=== PATIENT | female | born 1965 | race Caucasian/White ===

== ENCOUNTER → 2023-08-04 23:40 | Outpatient (CLI) | payer MEDICARE, MEDICAID, SELFPAY ==
[2023-08-04 18:12] LABS: Coronavirus 19, PCR Not Detected (NotDetected); Influenza A, PCR Not Detected (NotDetected); Influenza B, PCR Not Detected (NotDetected)
== END ==
LOC: LAB.DROPOF 23:41
PROVIDERS: PCP Nurse Practitioner; Visit Provider Nurse Practitioner
DX: J06.9 Acute upper respiratory infection, unspecified (principal); R06.09 Other forms of dyspnea; J02.9 Acute pharyngitis, unspecified; R09.81 Nasal congestion; R05.9 Cough, unspecified; R51.9 Headache, unspecified
CPT/HCPCS: 87636

== ENCOUNTER 2023-09-01 22:27 | Outpatient (CLI) | payer MEDICARE, MEDICAID, SELFPAY | END 2023-09-01 23:59 | LOC: LAB.DROPOF 22:27 | PROVIDERS: PCP Family Medicine; Visit Provider Family Medicine | DX: R30.0 Dysuria (principal) | CPT/HCPCS: 87086 ==

== ENCOUNTER → 2023-10-06 12:59 | Outpatient (POV) | payer MEDICARE, MEDICAID, SELFPAY ==
--- NOTE | 2023-10-06 13:11 | A.OFFVIS_ITS ---
HPI Data of Consult Patient: new to practice Consult date: 10/06/23 Requesting Physician: Leah Colin APRN Consult Narrative Reason for consult: Mid back pain History of present illness: Ms. Montelongo is a 58 year old female who presents today as a new patient. She is a referral from the [facility] location. Today she rates her pain a 8 out of 10. Patient states her pain is all in her mid back and denies any radiating symptoms into her legs. Patient states this has been going on for years and progressively worsened. Patient denies any specific trauma or injury that initially led to her symptoms. Patient does describe her pain as a constant achy sensation that is worse with increased activity or lifting movements. Patient states that she has had injections in the past however she did not get significant relief from that she does have a overall fear of needles and would prefer not to do guidance. Patient does state that she has tried Tylenol and ibuprofen along with heat and ice and topicals with minimal relief. Patient does state that the pain interferes with her ability to perform activities of daily living such as cooking and cleaning. Patient has been prescribed Lortab and Percocet in the past and states that she did have some leftover and has been breaking these in half in order to wean herself down and not have withdrawal symptoms. Patient does also state that she has had prior pain management for her neck as well. Patient states that she did just have physical therapy less than a year ago and it did help some however scoliosis seems to aggravate some of her overall symptoms.She is currently prescribed alprazolam 1 mg 3 times a day and [place] 10 mg 3 times a day from outside providers. Her Dawit has been reviewed. CC: Leah Colin APRN [facility] Disclaimer: The information contained in this section may have been updated after the patient was seen, as this information can be updated by other users. Medical History (Updated 10/06/23 @ 13:38 by Leah Colin APRN) Anxiety Back pain CMC arthritis GERD (gastroesophageal reflux disease) Kidney stones Scoliosis Surgical History (Updated 10/06/23 @ 13:25 by Amalia Abreu RN) Hx of carpal tunnel repair Hx of colectomy Hx of gastric bypass Hx of oral surgery Hx of tubal ligation Family History Grandfather Cancer Coronary artery disease Heart attack Grandmother Coronary artery disease Diabetes Heart attack Father Diabetes Cirrhosis Mother ALS (amyotrophic lateral sclerosis) Social History (Updated 10/06/23 @ 13:25 by Amalia Abreu RN) Smoking Status: Former smoker tobacco type: cigarettes smoking status stop date: 2005 alcohol intake: current current occupational status: other Travel in the last 8 weeks: None Review of Systems Review of Systems Review of systems:: pertinent systems reviewed and negative unless documented below Review of systems (narrative): Review of Systems: General: No recent weight changes, no fever, no sleep disturbances Respiratory: No cough, no shortness of air, no recurring pulmonary infections Cardiovascular/peripheral vascular: No chest pain, no palpitations, no edema, no shortness of breath Gastrointestinal: No new onset incontinence, normal bowel movements reported Genitourinary: No new onset incontinence Musculoskeletal: Mid back pain Psychiatric: [Normal mood/affect] Neurological: [Denies weakness in extremities], [denies balance issues] Meds Home Medications and Allergies Home Medications Medication Instructions Recorded Confirmed Type alprazolam 0.5 mg tablet 0.5 mg PO TID PRN anxiety #90 tabs 07/04/23 10/06/23 Rx hydrocodone 10 mg-acetaminophen 1 tab PO TIDP PRN Pain 07/04/23 10/06/23 History 325 mg tablet cyclobenzaprine 10 mg tablet 10 mg PO TIDP PRN muscle spasms 10/06/23 10/06/23 History naloxone 4 mg/actuation nasal spray 4 mg intranasal DAILYP PRN overdose 10/06/23 10/06/23 History omeprazole 20 mg capsule,delayed 20 mg PO DAILY 10/06/23 10/06/23 History release oxycodone-acetaminophen 5 mg-325 1 tab PO Q4H PRN Pain 10/06/23 10/06/23 History mg tablet New Prescriptions to Start Prescriptions: Allergies Allergy/AdvReac Type Severity Reaction Status Date / Time No Known Allergies Allergy Verified 09/01/23 09:19 Objective Narrative: Physical Exam: General: Alert and oriented x3, no acute distress, pleasant and cooperative Lungs: Respirations even and unlabored, symmetrical chest expansion Eyes: PERRL Musculoskeletal: Flexion and extension of thoracic [spine] somewhat guarded secondary to pain, [antalgic gait noted] Neurological: Speech clear, no gross sensory deficit Additional findings Additional findings: X-ray imaging lumbar spine 07/26/2023 findings: Mild levoscoliosis with accentuation of the normal lordosis. There is mild to moderate diffuse osteoarthritis. Advanced degenerative disc disease at the facets at L4-L5 and L5-S1. Grade 1 anterolisthesis of L4, increased over prior study. No spondylosis. Moderate generalized fecal loading. Cholecystectomy clips noted. MRI thoracic spine 2021 findings: Moderate facet arthropathy and T2 and T3. Moderate right and mild left facet arthropathy and T8 and T9. Bilateral facet arthropathy. T9-10: Minor disc bulge. T10-11 minor disc bulge. T11-12. Small intervertebral disc herniation involving the superior endplate of T12 without moderate endplate reactive changes. Assessment and Plan *Assessment and plan (1) Mid back pain: Status: Acute Category: Medical Code(s): M54.9 - Dorsalgia, unspecified (2) Degenerative disc disease, thoracic: Status: Acute Category: Medical Code(s): M51.34 - Other intervertebral disc degeneration, thoracic region (3) Facet arthropathy, thoracic: Status: Acute Category: Medical Code(s): M47.814 - Spondylosis without myelopathy or radiculopathy, thoracic region (4) Chronic back pain: Status: Acute Qualifiers: Back pain location: thoracic back pain Back pain laterality: bilateral Qualified Code(s): M54.6 - Pain in thoracic spine; G89.29 - Other chronic pain Category: Medical Code(s): M54.9 - Dorsalgia, unspecified; G89.29 - Other chronic pain Plan Patient is experiencing significant pain in her mid back with limited range of motion. I have discussed with the patient that we are more interventional pain and that we do more hands-on approach such as injection therapy or intrathecal pain pump or stimulator trial. I have discussed with the patient that she may benefit from thoracic medial branch block however patient does have a fear of needles and would like to avoid this option. I have also discussed with the patient that she may benefit from intrathecal pain pump trial in the future however due to this being with a needle as well she is not interested in this option at this time. I will order the patient a compounded cream. I will also send in a prescription of meloxicam 7.5 mg daily with a 2-week supply of this medication. Patient denied any heart or kidney issues. I have counseled the patient to take this medication with food to minimize GI upset and discontinue all other NSAIDs while taking this medication. Patient will return to clinic in 2 weeks for reevaluation of symptoms and plan of care. Patient has been instructed to contact the clinic with any concerns before the next appointment. Dr. Lozano has reviewed this note and agrees with this plan of care. This note was dictated using voice recognition software and make contain errors or omissions.
[2023-10-06 13:23] VITALS: BP 99/77; PULSE 94; RESP 20; O2SAT 98; BMI 30.7
== END | disposition home or self-care (01) ==
PROVIDERS: Visit Provider Nurse Practitioner Family
DX: M51.34 Other intervertebral disc degeneration, thoracic region; M47.814 Spondylosis without myelopathy or radiculopathy, thoracic region; G89.29 Other chronic pain
CPT/HCPCS: 99202; G0463

== ENCOUNTER 2023-10-31 19:58 | Outpatient (CLI) | payer MEDICARE, MEDICAID, SELFPAY | END 2023-10-31 23:59 | LOC: LAB.DROPOF 19:58 | PROVIDERS: PCP Family Medicine; Visit Provider Family Medicine | DX: N39.0 Urinary tract infection, site not specified (principal) | CPT/HCPCS: 87086 ==

== ENCOUNTER 2023-12-28 10:54 | Outpatient (CLI) | payer MEDICARE, MEDICAID, SELFPAY | END 2023-12-28 23:59 | disposition home or self-care (01) | LOC: LAB.DROPOF 12-29 10:54 | PROVIDERS: PCP Family Medicine; Visit Provider Family Medicine | DX: R30.0 Dysuria (principal) | CPT/HCPCS: 87086 ==

== ENCOUNTER 2024-04-05 09:49 | Outpatient (CLI) | payer MEDICARE, SELFPAY ==
[2024-04-05 19:08] LABS: Basophils # 0.1 K/mm3 (0-0.2); Basophils % 1.1 % (0.1-2.0); Eosinophils # 0.2 K/mm3 (0.0-0.4); Hematocrit 36.4 % (37.0-47.0); Hemoglobin 11.2 g/dL (12.2-16.2); Lymphocytes # 2.3 K/mm3 (0.7-4.5); Lymphocytes % 47.5 % (10-50); Mean Corpuscular HGB Conc 30.8 g/dL (31.8-35.4); Mean Corpuscular Hemoglobin 28.9 pg (27.0-31.2); Mean Corpuscular Volume 93.6 fl (81-99); Mean Platelet Volume 9.2 fl (7.4-10.4); Monocytes # 0.3 K/mm3 (0.1-1.0); Monocytes % 6.4 % (1.7-9.3); Platelet Count 386 K/mm3 (142-424); Red Blood Count 3.89 M/mm3 (4.20-5.40); White Blood Count 4.8 K/mm3 (4.8-10.8)
[2024-04-05 19:32] LABS: Alanine Aminotransferase 16 U/L (12-78); Albumin Level 3.6 g/dl (3.5-5.0); Albumin/Globulin Ratio 1.2 (1.1-1.8); Alkaline Phosphatase 70 U/L (38-126); Anion Gap 6.5 mEq/L (5-15); Aspartate Amino Transferase 35 U/L (14-36); Bilirubin,Total 0.5 mg/dl (0.2-1.3); Blood Urea Nitrogen 12 mg/dl (7-17); Carbon Dioxide 27 mmol/L (22.0-30.0); Chloride 107 mmol/L (98-107); Estimated Glomerular Filt Rate 87 ml/min (>60); GFR (African American) 105 ML/MIN (>60); Globulin 2.9 g/dL (1.3-3.2); Glucose 91 mg/dl (74-100); Potassium 4.5 mmoL/L (3.5-5.1); Sodium 136 mmol/L (136-145); Total Protein,Serum 6.5 g/dl (6.3-8.2)
[2024-04-05 19:47] LABS: 25-OH Vitamin D, Total 29.4 ng/mL (30-100)
[2024-04-05 20:02] LABS: Thyroid Stimulating Hormone 4.49 uIU/mL (0.465-4.68)
[2024-04-05 20:46] LABS: Hemoglobin A1C 5.6 % (4.0-6.0)
[2024-04-05 21:01] LABS: Vitamin B12 199 pg/mL (239-931)
== END 2024-04-05 23:59 | disposition home or self-care (01) ==
LOC: LAB.DROPOF 04-06 10:15
PROVIDERS: PCP Family Medicine; Visit Provider Family Medicine
DX: E66.9 Obesity, unspecified (principal); M51.34 Other intervertebral disc degeneration, thoracic region; E11.9 Type 2 diabetes mellitus without complications; E55.9 Vitamin D deficiency, unspecified; Z68.33 Body mass index [BMI] 33.0-33.9, adult
CPT/HCPCS: 80050; 80053; 82306; 82607; 83036; 84443; 85025

== ENCOUNTER 2024-05-17 09:40 | Outpatient (CLI) | payer MEDICARE, SELFPAY | END 2024-05-17 23:59 | disposition home or self-care (01) | LOC: LAB.DROPOF 05-18 09:40 | PROVIDERS: PCP Nurse Practitioner; Visit Provider Nurse Practitioner | DX: N10 Acute pyelonephritis (principal); M54.9 Dorsalgia, unspecified | CPT/HCPCS: 87086; 87088; 87186 ==

== ENCOUNTER 2024-06-04 10:15 | Outpatient (CLI) | payer MEDICARE, SELFPAY ==
[2024-06-04 17:54] LABS: Basophils % 0.8 % (0.1-2.0); Eosinophils # 0.1 K/mm3 (0.0-0.4); Eosinophils % 2.3 % (0.1-12.0); Hematocrit 35.7 % (37.0-47.0); Lymphocytes # 1.9 K/mm3 (0.7-4.5); Lymphocytes % 36.6 % (10-50); Mean Corpuscular HGB Conc 33.5 g/dL (31.8-35.4); Mean Corpuscular Hemoglobin 29.5 pg (27.0-31.2); Mean Corpuscular Volume 88.1 fl (81-99); Monocytes # 0.3 K/mm3 (0.1-1.0); Monocytes % 6.2 % (1.7-9.3); Neutrophils # 2.8 K/mm3 (1.8-7.8); Platelet Count 388 K/mm3 (142-424); Red Blood Count 4.06 M/mm3 (4.20-5.40); Red Cell Distribution Width 13.6 % (11.5-17.5); White Blood Count 5.1 K/mm3 (4.8-10.8)
[2024-06-04 18:46] LABS: Albumin Level 4.1 g/dl (3.5-5.0); Aspartate Amino Transferase 29 U/L (14-36); Bilirubin,Total 0.6 mg/dl (0.2-1.3); Carbon Dioxide 30 mmol/L (22.0-30.0); Estimated Glomerular Filt Rate 74 ml/min (>60); GFR (African American) 90 ML/MIN (>60); Glucose 96 mg/dl (74-100); Sodium 139 mmol/L (136-145); VLDL Cholesterol 12 mg/dL (0-40)
[2024-06-04 19:26] LABS: Alanine Aminotransferase 15 U/L (12-78); Albumin/Globulin Ratio 1.6 (1.1-1.8); Alkaline Phosphatase 75 U/L (38-126); Anion Gap 12.9 mEq/L (5-15); Blood Urea Nitrogen 18 mg/dl (7-17); Calcium 9.2 mg/dl (8.4-10.2); Chloride 101 mmol/L (98-107); Chol/HDL Ratio 3.7 (1-3.5); Cholesterol 256 mg/dl (140-200); Globulin 2.6 g/dL (1.3-3.2); HDL Cholesterol 70 mg/dl (40-60); Potassium 4.9 mmoL/L (3.5-5.1); Total Protein,Serum 6.7 g/dl (6.3-8.2); Triglycerides 60 mg/dl (30-150)
[2024-06-04 19:29] LABS: Troponin I < 0.01 ng/ml (0.00-0.034)
[2024-06-04 19:38] LABS: Direct LDL Cholesterol 166.33 mg/dL (100-129)
[2024-06-04 19:59] LABS: Thyroid Stimulating Hormone 2.21 uIU/mL (0.465-4.68)
[2024-06-04 20:24] LABS: Hemoglobin A1C 5.6 % (4.0-6.0)
== END 2024-06-04 23:59 | disposition home or self-care (01) ==
LOC: LAB.DROPOF 06-05 13:04
PROVIDERS: PCP Nurse Practitioner; Visit Provider Nurse Practitioner
DX: F41.9 Anxiety disorder, unspecified (principal); E66.9 Obesity, unspecified; M54.9 Dorsalgia, unspecified; R73.01 Impaired fasting glucose; R07.9 Chest pain, unspecified; R06.02 Shortness of breath; E78.5 Hyperlipidemia, unspecified; Z68.34 Body mass index [BMI] 34.0-34.9, adult
CPT/HCPCS: 80053; 80061; 83036; 84443; 84484; 85025; 87086

== ENCOUNTER 2024-07-09 10:03 | Outpatient (CLI) | payer MEDICARE, SELFPAY | END 2024-07-09 23:59 | disposition home or self-care (01) | LOC: LAB.DROPOF 07-10 15:09 | PROVIDERS: PCP Family Medicine; Visit Provider Family Medicine | DX: N39.0 Urinary tract infection, site not specified (principal) | CPT/HCPCS: 87086 ==

== ENCOUNTER 2024-10-16 14:25 | Outpatient (CLI) | payer OTHER, SELFPAY | END 2024-10-16 23:59 | disposition home or self-care (01) | LOC: LAB.DROPOF 10-18 10:10 | PROVIDERS: PCP Nurse Practitioner; Visit Provider Nurse Practitioner | DX: R30.0 Dysuria (principal) | CPT/HCPCS: 87086 ==

== ENCOUNTER 2024-11-13 10:57 | Outpatient (CLI) | payer MEDICARE, SELFPAY ==
[2024-11-13 18:17] LABS: Creatinine,Urine Random 66 mg/dL (Not Estab.)
[2024-11-13 18:19] LABS: Microalbumin < 6.000 mg/L (0-16.7)
[2024-11-13 18:50] LABS: Basophils # 0.1 K/mm3 (0-0.2); Basophils % 0.8 % (0.1-2.0); Eosinophils # 0.2 K/mm3 (0.0-0.4); Eosinophils % 3.2 % (0.1-12.0); Hematocrit 35.3 % (37.0-47.0); Hemoglobin 11.3 g/dL (12.2-16.2); Lymphocytes # 2.8 K/mm3 (0.7-4.5); Lymphocytes % 47.3 % (10-50); Mean Corpuscular Hemoglobin 29.5 pg (27.0-31.2); Mean Corpuscular Volume 92.2 fl (81-99); Mean Platelet Volume 9.4 fl (7.4-10.4); Monocytes # 0.5 K/mm3 (0.1-1.0); Monocytes % 7.8 % (1.7-9.3); Neutrophils # 2.5 K/mm3 (1.8-7.8); Neutrophils % 40.9 % (37.0-80.0); Platelet Count 395 K/mm3 (142-424); Red Blood Count 3.83 M/mm3 (4.20-5.40); Red Cell Distribution Width 13.7 % (11.5-17.5)
[2024-11-13 19:25] LABS: Hemoglobin A1C 5.1 % (4.0-6.0)
[2024-11-13 19:34] LABS: Alanine Aminotransferase 19 U/L (12-78); Albumin Level 3.4 g/dl (3.5-5.0); Albumin/Globulin Ratio 1.3 (1.1-1.8); Alkaline Phosphatase 75 U/L (38-126); Anion Gap 12.7 mEq/L (5-15); Aspartate Amino Transferase 29 U/L (14-36); Bilirubin,Total 0.5 mg/dl (0.2-1.3); Blood Urea Nitrogen 19 mg/dl (7-17); Calcium 8.8 mg/dl (8.4-10.2); Carbon Dioxide 27 mmol/L (22.0-30.0); Chloride 103 mmol/L (98-107); Estimated Glomerular Filt Rate 86 ml/min (>60); GFR (African American) 104 ML/MIN (>60); Globulin 2.7 g/dL (1.3-3.2); Glucose 89 mg/dl (74-100); Potassium 4.7 mmoL/L (3.5-5.1); Sodium 138 mmol/L (136-145); Total Protein,Serum 6.1 g/dl (6.3-8.2)
[2024-11-13 20:03] LABS: Thyroid Stimulating Hormone 1.71 uIU/mL (0.465-4.68)
[2024-11-13 20:22] LABS: Vitamin B12 198 pg/mL (239-931)
== END 2024-11-13 23:59 | disposition home or self-care (01) ==
LOC: LAB.DROPOF 11-14 09:49
PROVIDERS: PCP Nurse Practitioner; Visit Provider Nurse Practitioner
DX: E11.9 Type 2 diabetes mellitus without complications (principal); E78.5 Hyperlipidemia, unspecified; E66.9 Obesity, unspecified
CPT/HCPCS: 80053; 82043; 82570; 82607; 83036; 84443; 85025

== ENCOUNTER 2025-01-14 10:18 | Outpatient (CLI) | payer MEDICARE, SELFPAY ==
[2025-01-14 19:20] LABS: Chol/HDL Ratio 3.3 (1-3.5); Cholesterol 130 mg/dl (140-200); HDL Cholesterol 39 mg/dl (40-60); Triglycerides 61 mg/dl (30-150); VLDL Cholesterol 12 mg/dL (0-40)
[2025-01-14 20:14] LABS: Direct LDL Cholesterol 66.54 mg/dL (100-129)
--- OUTSIDE RECORDS SUMMARY | 2025-01-15 15:21 | XMS_ITS | Continuity of Care Document ---
Author Organization [place] - [facility] & [place], [facility] Address [address] [place] [address] Care Team Providers Care Steel Buffer Name Role Phone VAL WEBSTER Primary Care Provider Assessment Encounter Date Assessment Date Assessment LastModified by Organization Details LastModified Time 12/24/2024 12/24/2024 Patient presente d for medication refill. Patient tolerating medication well at current dose without adverse effects. Refilled as below. Discussed plan with patient, who expressed understanding. Follow up as noted below. Narcan is prescribed due to either long-term use of opioid medication, MME > 50mg, use of benzodiazepines with opioids and medical comorbidities. Instructions were given to patient on use. [email or web address] Not available 12/21/2024 11:47:56 Plan of Treatment Reminders Order Date Submit Date Provider Last Modified By Organization Details Last Modified Time Details Appointments Establish ed Visit 15 min 2024 08:15A M MIGEL DALE NP Not available Not available Not available Lab None recorded. Referral None recorded. Procedures None recorded. Surgeries None recorded. Imaging None recorded. Medication Orders hydrocodo ne 10 mg-acetam inophen 325 mg tablet 2024 025 [facility] [address] [place], [address], 12/24/2024 13:42:48 cyclobenz aprine 10 mg tablet 2024 025 [facility] [address] [place], [address], 12/24/2024 13:42:46 meloxicam 15 mg tablet 2024 025 [facility] [address] [place], [address], 12/24/2024 13:42:44 omeprazol e 40 mg capsule,d elayed release 2024 025 [facility] [address] [place], [address], 12/24/2024 13:42:45 Patient TargetsNo targets recorded. Patient InstructionsNo instructions recorded. Reason for Referral None Reported. Medical Equipment None Reported. Allergies No known drug allergies Medications Name Sig Start Date Stop Date Status Note LastModified by Organization Details LastModified Time cyclobenzap rine 10 mg tablet Take 1 tablet 3 times a day by oral route. 2024 active Not Available Not Available Not Avai lable atorvastati n 20 mg tablet 10/22 completed Not Available Not Available Not Available azithromyci n 250 mg tablet TAKE 2 TABLETS BY MOUTH ON DAY 1, AND THEN TAKE 1 TABLET BY MOUTH ONCE A DAY ON DAY 2 THROUGH DAY 5 active Not Available Not Available No t Available fluconazole 150 mg tablet TAKE 1 TABLET BY MOUTH ONCE A WEEK active Not Available Not Available No t Available meloxicam 15 mg tablet Take 1 tablet every day by oral route. 2024 active Not Available Not Available Not Avai lable ciprofloxac in 500 mg tablet TAKE 1 TABLET BY MOUTH TWICE DAILY. 10/22 completed Not Available Not Available Not Available sulfamethox azole 800 mg-trimetho prim 160 mg tablet TAKE 1 TABLET BY MOUTH TWICE DAILY active Not Available Not Available No t Available hydrocodone 10 mg-acetamin ophen 325 mg tablet Take 1 tablet 3 times a day by oral route. 2024 active Not Available Not Available Not Avai lable omeprazole 40 mg capsule,del ayed release Take 1 capsule every day by oral route. 2024 active Not Available Not Available Not Avai lable cefuroxime axetil 500 mg tablet TAKE 1 TABLET BY MOUTH TWICE DAILY active Not Available Not Available No t Available methylpredn isolone 4 mg tablets in a dose pack TAKE BY MOUTH DIRECTED ON INSIDE OF PACKAGE active Not Available Not Available No t Available bromphenira mine-pseudo ephedrine-D M 2 mg-30 mg-10 mg/5 mL oral syrup TAKE 5 ML BY MOUTH EVERY 4 TO 6 HOURS NEEDED FOR COLD SYMPTOMS active Not Available Not Available No t Available liraglutide 0.6 mg/0.1 mL (18 mg/3 mL) subcutaneou s pen injector DIAL AND INJECTSUB CUTANEOUS LY 0.6 MG DAILY FOR 7 DAYS, THEN INJECT 1.2 MG DAILY THEREAFTE R, DO NOT EXCEED 1.8 MG PER DAY 10/22 completed Not Available Not Available Not Available Ozempic 1 mg/dose (4 mg/3 mL) subcutaneou s pen injector INJECT 1 MG UNDER THE SKIN ONCE WEEKLY. active Not Available Not Available No t Available Ozempic 0.25 mg or 0.5 mg (2 mg/3 mL) subcutaneou s pen injector INJECT 0.5MG SUBCUTANE OUSLY ONCE A WEEK active Not Available Not Available No t Available Vitals Date Recorded Body height Body temperature Oxygen saturation Oxygen saturation in Arterial blood by Pulse oximetry Heart rate Respiratory rate Systolic blood pressure Diastolic blood pressure Provider Name and Address Organization Details Last Updated DateTime 5 167.64 cm 97.2 [degF] 100 % 100 % 84 /min 16 /min 120 mm[Hg] 62 mm[Hg] Jannette [facility] [place] [facility] [place] 5 08:16:52 Social History None recorded. Functional Status None recorded. Mental Status None recorded. Family History Nothing Reported. Medical History No medical history recorded. Gynecological HistoryNo gynecological history recorded. Obstetrics History GPAL:G 0 P 0 0 0 0 Past Encounters Encounter ID Performer Location Encounter Start Date Encounter Closed Date Diagnosis/Indication Diagnosis SNOMED-CT Code Diagnosis ICD10 Code Diagnosis Note [id number] [facility] [address] [email or web address] [address] [address] 12/24/2024 07:57:44 12/24/2024 08:39:52 Lumbar spondylosis 227929703 M47.816 Lumbar radiculopathy 128 199408 M54.16 Long-term current use of insulin 943416438 Z79.4 Cervical spondylosis 387 560329 M47.812 Degenerati on of lumbar intervertebral disc 34339213 M51.360 Long-term current use of opiate analgesic drug [id number] 81125 Z79.891 Primary go narthrosis, bilateral 828157866 M17.0 Gastroesop hageal reflux disease without esophagitis 103195888 K21.9 Pt unable to get in to PCP to get GERD meds and is out at this time, she has an appt. Rx sent for one month until PCP can fill. Health Concerns Section Related Observation LastModified by Organization Detai ls LastModified Time None Recorded Concern Status LastModified by Organization Details LastModified Time None Recorded Payers Encounter Date Sequence Insurance Name Policy Number Policy Tena Covered Member ID Tena Member ID Guarantor Name 12/24/2024 2 [place] Thania I Reginald [id number] Thania Reginald 12/24/2024 1 [employer] (MEDICARE REPLACEMENT/ ADVANTAGE - PPO) [id number] Thania I Reginald [id number] Thania Reginald Notes Date Note Type Note Provider Name and Address Organization Details Recorded Time 12/24/2024 text/html 59 yo female in for a f/u for low back pain. Pain is rated at 4/10, and has gotten up to 8/10 in the last month. She describes pain as frequent and aching. Standing, walking adn lying down makes pain worse, heat and medication makes it better. Does not cause loss of bowel or bladder. Pain level at rest: 3/10Pain level w/activity: 7/10Feeling down depressed or hopeless: NoAre you having little interest or pleasure in doing things: SometimesHave you had any falls with injury in the past year: NoDo you use any illicit or recreation drugs: NoDo you or have you ever smoked tobacco: Yes - formerWhat is your level of alcohol consumption: None MIGEL DALE NP [address] [facility] , [place], [address], [facility] - [place] & [place] 12/24/2024 13:42:48 OBGyn Episode No OBEpisode recorded.
--- OUTSIDE RECORDS SUMMARY | 2025-01-15 15:21 | XMS_ITS | Data Portability ---
Author Organization [facility] Address [address] [place] [address] Assessment No assessment recorded. Plan of Treatment Reminders Order Date Submit Date Provider Last Modified By Organization Details Last Modified Time Details Appointments None recorded. Lab drug screen, 14 drugs (detectime d), urine 2022 023 DOUGLAS [facility], [address], [place], [place], [address], 3 17:08:50 HbA1c (hemoglobi n A1c), blood 2022 023 DOUGLAS [facility], [address], [place], [place], [address], 3 08:28:07 TSH + free T4, serum 2022 023 DOUGLAS [facility], [address], [place], [place], [address], 3 08:28:02 lipid panel, serum 2022 023 DOUGLAS [facility], [address], [place], [place], [address], 3 08:28:05 CMP, serum or plasma 2022 023 DOUGLAS [facility], [address], [place], [place], [address], 3 08:28:04 CBC w/ auto diff 2022 023 DOUGLAS [facility], [address], [place], [place], [address], 3 08:28:03 urinalysis , dipstick 2022 023 jayna [facility], [address] [place] [address] , [place], [address], 3 12:45:11 culture, urine 2022 023 DOUGLAS [facility], [address], [place], [place], [address], 3 04:10:21 vitamin D, 25-hydroxy , total, serum 2022 023 DOUGLAS [facility], [address], [place], [place], [address], 3 08:28:08 vitamin B12 + folate, serum or blood 2022 023 DOUGLAS [facility], [address], [place], [place], [address], 3 08:28:06 iron + total iron-saul ng capacity (TIBC), serum 2022 023 DOUGLAS [facility], [address], [place], [place], [address], 3 08:28:06 Referral pain management referral - 57yo with chronic back pain and scoliosis. She was started on alprazolam , hydrocodon e, and cyclobenza chelsie 2 years ago. Titraiting meds down. Please evaluate and treat. Thank you. 2022 023 HOOPER Not available 4 12:22:47 Procedures None recorded. Surgeries None recorded. Imaging None recorded. Medication Orders cephalexin 500 mg capsule 2022 023 [facility] [id number], [address] [place] [address] Dr, [place], [address], 3 10:05:55 omeprazole 20 mg capsule,de layed release 2022 023 [facility] [id number], [address] [facility] , [place], [address], 3 10:05:58 Diflucan 150 mg tablet 2022 023 [facility] [id number], [address] , [place], [address], 3 10:05:55 Patient TargetsNo targets recorded. Patient Instructions Encounter Date Encounter Id Patient Instructions Last Modified By Organization Details Last Modified Time 07/11/2023 [id number] learning about healthy weight sbrashear Not available 07/11/2023 10:07:38 body mass index: care instructions sbrashear Not available 07/11/2023 10:07:38 medical record request* - Cologuard results Not available 08/03/2023 11:32:12 Reason for Referral Pain Management Referral for Chronic low back pain 57yo with chronic back pain and scoliosis. She was started on alprazolam, hydrocodone, and cyclobenzaprine 2 years ago. Titraiting meds down. Please evaluate and treat. Thank you. Referring Physician: April Olea, Family Medicine, Encounter Date: 07/11/2023 Results Created Date Observation Date Name Description Value Unit Range Abnormal Flag Note LastModifiedBy Organization Detail LastModifiedTime 07/11/2007/12/2023 TSH+F REE T4 TSH 3.450 uIU/m L 0.450- 4.500 Not Available [facility] ([facility]) [address] [facility], [place], [address], 07/12/2023 08:28:02 07/11/20 23 07/12/2023 TSH+F REE T4 T4,free(dire ct) 0.83 NG/dL 0.82-1 .77 Not Available [facility] ([facility]) [address] [facility], [place], [address], 07/12/2023 08:28:02 07/11/20 23 07/12/2023 CBC WITH DIFFE RENTI AL/PL ATELE T WBC 4.6 x10e3 /uL 3.4-10 .8 Not Available [facility] ([facility]) [address] [facility], [place], [address], 07/12/2023 08:28:03 07/11/20 23 07/12/2023 CBC WITH DIFFE RENTI AL/PL ATELE T RBC 4.29 x10e6 /uL 3.77-5 .28 Not Available [facility] ([facility]) [address] [facility], [place], [address], 07/12/2023 08:28:03 07/11/20 23 07/12/2023 CBC WITH DIFFE RENTI AL/PL ATELE T hemoglobin 12.3 g/dL 11.1-1 5.9 Not Available [facility] ([facility]) [address] [facility], [place], [address], 07/12/2023 08:28:03 07/11/20 23 07/12/2023 CBC WITH DIFFE RENTI AL/PL ATELE T hematocrit 37.4 % 34.0-4 6.6 Not Available [facility] ([facility]) [address] [facility], [place], [address], 07/12/2023 08:28:03 07/11/20 23 07/12/2023 CBC WITH DIFFE RENTI AL/PL ATELE T MCV 87 fL 79-97 Not Available [facility] ([facility]) [address] [facility], [place], [address], 07/12/2023 08:28:03 07/11/20 23 07/12/2023 CBC WITH DIFFE RENTI AL/PL ATELE T MCH 28.7 pg 26.6-3 3.0 Not Available [facility] ([facility]) [address] [facility], [place], [address], 07/12/2023 08:28:03 07/11/20 23 07/12/2023 CBC WITH DIFFE RENTI AL/PL ATELE T MCHC 32.9 g/dL 31.5-3 5.7 Not Available [facility] ([facility]) [address] [facility], [place], [address], 07/12/2023 08:28:03 07/11/20 23 07/12/2023 CBC WITH DIFFE RENTI AL/PL ATELE T RDW 12.8 % 11.7-1 5.4 Not Available [facility] ([facility]) [address] [facility], [place], [address], 07/12/2023 08:28:03 07/11/20 23 07/12/2023 CBC WITH DIFFE RENTI AL/PL ATELE T platelets 309 x10e3 /uL 150-45 0 Not Available [facility] ([facility]) [address] [facility], [place], [address], 07/12/2023 08:28:03 07/11/20 23 07/12/2023 CBC WITH DIFFE RENTI AL/PL ATELE T neutrophils 35 % not estab. Not Available [facility] ([facility]) [address] [facility], [place], [address], 07/12/2023 08:28:03 07/11/20 23 07/12/2023 CBC WITH DIFFE RENTI AL/PL ATELE T lymphs 53 % not estab. Not Available [facility] ([facility]) [address] [facility], [place], [address], 07/12/2023 08:28:03 07/11/20 23 07/12/2023 CBC WITH DIFFE RENTI AL/PL ATELE T monocytes 9 % not estab. Not Available [facility] ([facility]) [address] [facility], [place], [address], 07/12/2023 08:28:03 07/11/20 23 07/12/2023 CBC WITH DIFFE RENTI AL/PL ATELE T eos 2 % not estab. Not Available [facility] ([facility]) [address] [place], [address], 07/12/2023 08:28:03 07/11/20 23 07/12/2023 CBC WITH DIFFE RENTI AL/PL ATELE T basos 1 % not estab. Not Available [facility] ([facility]) [address] [place], [address], 07/12/2023 08:28:03 07/11/20 23 07/12/2023 CBC WITH DIFFE RENTI AL/PL ATELE T immature cells COMPUTATIONAL CHEMIST Not Available [facility] ([facility]) [address] [place], [address], 07/12/2023 08:28:03 07/11/2007/12/2023 CBC WITH DIFFE RENTI AL/PL ATELE T neutrophils (absolute) 1.6 x10e3 /uL 1.4-7. 0 Not Available [facility] ([facility]) [address] [place], [address], 07/12/2023 08:28:03 07/11/20 23 07/12/2023 CBC WITH DIFFE RENTI AL/PL ATELE T lymphs (absolute) 2.5 x10e3 /uL 0.7-3. 1 Not Available [facility] ([facility]) [address] [place], [address], 07/12/2023 08:28:03 07/11/2007/12/2023 CBC WITH DIFFE RENTI AL/PL ATELE T monocytes(ab solute) 0.4 x10e3 /uL 0.1-0. 9 Not Available [facility] ([facility]) [address] [place], [address], 07/12/2023 08:28:03 07/11/20 23 07/12/2023 CBC WITH DIFFE RENTI AL/PL ATELE T eos (absolute) 0.1 x10e3 /uL 0.0-0. 4 Not Available [facility] ([facility]) [address] [facility], [place], [address], 07/12/2023 08:28:03 07/11/20 23 07/12/2023 CBC WITH DIFFE RENTI AL/PL ATELE T baso (absolute) 0.0 x10e3 /uL 0.0-0. 2 Not Available [facility] ([facility]) [address] [facility], [place], [address], 07/12/2023 08:28:03 07/11/20 23 07/12/2023 CBC WITH DIFFE RENTI AL/PL ATELE T immature granulocytes 0 % not estab. Not Available [facility] ([facility]) [address] [facility], [place], [address], 07/12/2023 08:28:03 07/11/20 23 07/12/2023 CBC WITH DIFFE RENTI AL/PL ATELE T immature grans (abs) 0.0 x10e3 /uL 0.0-0. 1 Not Available [facility] ([facility]) [address] [facility], [place], [address], 07/12/2023 08:28:03 07/11/20 23 07/12/2023 CBC WITH DIFFE RENTI AL/PL ATELE T NRBC COMPUTATIONAL CHEMIST Not Available [facility] ([facility]) [address] [facility], [place], [address], 07/12/2023 08:28:03 07/11/20 23 07/12/2023 CBC WITH DIFFE RENTI AL/PL ATELE T hematology comments: COMPUTATIONAL CHEMIST Not Available [facility] ([facility]) [address] [facility], [place], [address], 07/12/2023 08:28:03 07/11/20 23 07/12/2023 COMP. METAB OLIC PANEL (14) glucose 89 mg/dL 70-99 Not Available [facility] ([facility]) [address] [place], [address], 07/12/2023 08:28:04 07/11/20 23 07/12/2023 COMP. METAB OLIC PANEL (14) BUN 13 mg/dL 6-24 Not Available [facility] ([facility]) [address] [place], [address], 07/12/2023 08:28:04 07/11/20 23 07/12/2023 COMP. METAB OLIC PANEL (14) creatinine 0.79 mg/dL 0.57-1 .00 Not Available [facility] ([facility]) [address] [place], [address], 07/12/2023 08:28:04 07/11/20 23 07/12/2023 COMP. METAB OLIC PANEL (14) eGFR 88 mL/mi n/1.7 3 >59 Not Available [facility] ([facility]) [address] [place], [address], 07/12/2023 08:28:04 07/11/20 23 07/12/2023 COMP. METAB OLIC PANEL (14) BUN/creatini ne ratio 16 9-23 Not Available [facility] ([facility]) [address] [place], [address], 07/12/2023 08:28:04 07/11/20 23 07/12/2023 COMP. METAB OLIC PANEL (14) sodium 140 mmol/ L 134-14 4 Not Available [facility] ([facility]) [address] [place], [address], 07/12/2023 08:28:04 07/11/20 23 07/12/2023 COMP. METAB OLIC PANEL (14) potassium 4.7 mmol/ L 3.5-5. 2 Not Available [facility] ([facility]) [address] [place], [address], 07/12/2023 08:28:04 07/11/20 23 07/12/2023 COMP. METAB OLIC PANEL (14) chloride 101 mmol/ L 96-106 Not Available [facility] ([facility]) [address] [place], [address], 07/12/2023 08:28:04 07/11/20 23 07/12/2023 COMP. METAB OLIC PANEL (14) carbon dioxide, total 25 mmol/ L 20-29 Not Available [facility] ([facility]) [address] [place], [address], 07/12/2023 08:28:04 07/11/20 23 07/12/2023 COMP. METAB OLIC PANEL (14) calcium 9.3 mg/dL 8.7-10 .2 Not Available [facility] ([facility]) [address] [place], [address], 07/12/2023 08:28:04 07/11/20 23 07/12/2023 COMP. METAB OLIC PANEL (14) protein, total 6.6 g/dL 6.0-8. 5 Not Available [facility] ([facility]) [address] [place], [address], 07/12/2023 08:28:04 07/11/20 23 07/12/2023 COMP. METAB OLIC PANEL (14) albumin 4.1 g/dL 3.8-4. 9 Not Available [facility] ([facility] [address] [facility] [place], [address], 07/12/2023 08:28:04 07/11/20 23 07/12/2023 COMP. METAB OLIC PANEL (14) globulin, total 2.5 g/dL 1.5-4. 5 Not Available [facility] ([facility]) [address] [facility] [place], [address], 07/12/2023 08:28:04 07/11/20 23 07/12/2023 COMP. METAB OLIC PANEL (14) A/G ratio 1.6 1.2-2. 2 Not Available [facility] ([facility]) [address] [facility] [place], [address], 07/12/2023 08:28:04 07/11/20 23 07/12/2023 COMP. METAB OLIC PANEL (14) bilirubin, total 0.2 mg/dL 0.0-1. 2 Not Available [facility] ([facility]) [address] [facility] [place], [address], 07/12/2023 08:28:04 07/11/20 23 07/12/2023 COMP. METAB OLIC PANEL (14) alkaline phosphatase 82 IU/L 44-121 Not Available [facility] ([facility]) [address] [facility] [place], [address], 07/12/2023 08:28:04 07/11/20 23 07/12/2023 COMP. METAB OLIC PANEL (14) AST (SGOT) 24 IU/L 0-40 Not Available [facility] ([facility]) [address] [facility] [place], [address], 07/12/2023 08:28:04 07/11/20 23 07/12/2023 COMP. METAB OLIC PANEL (14) ALT (SGPT) 12 IU/L 0-32 Not Available [facility] ([facility]) [address] [facility] [place], [address], 07/12/2023 08:28:04 07/11/20 23 07/12/2023 LIPID PANEL cholesterol, total 206 mg/dL 100-19 9 above high normal Not Available [facility] ([facility]) [address] [facility] [place], [address], 07/12/2023 08:28:05 07/11/20 23 07/12/2023 LIPID PANEL triglyceride s 99 mg/dL 0-149 Not Available [facility] ([facility]) [address] [facility] [place], [address], 07/12/2023 08:28:05 07/11/20 23 07/12/2023 LIPID PANEL HDL cholesterol 57 mg/dL >39 Not Available [facility] ([facility]) [address] [facility] [place], [address], 07/12/2023 08:28:05 07/11/20 23 07/12/2023 LIPID PANEL VLDL cholesterol petra 18 mg/dL 5-40 Not Available [facility] ([facility]) [address] [facility] [place], [address], 07/12/2023 08:28:05 07/11/20 23 07/12/2023 LIPID PANEL LDL chol calc ([facility]) 131 mg/dL 0-99 above high normal Not Available [facility] ([facility]) [address] [facility] [place], [address], 07/12/2023 08:28:05 07/11/20 23 07/12/2023 LIPID PANEL comment: COMPUTATIONAL CHEMIST Not Available [facility] ([facility]) [address] [facility] [place], [address], 07/12/2023 08:28:05 07/11/20 23 07/12/2023 IRON AND TIBC iron bind.cap.(TI BC) 398 ug/dL 250-45 0 Not Available [facility] ([facility]) [address] [facility] [place], [address], 07/12/2023 08:28:06 07/11/20 23 07/12/2023 IRON AND TIBC UIBC 280 ug/dL 131-42 5 Not Available [facility] ([facility]) [address] [facility] [place], [address], 07/12/2023 08:28:06 07/11/20 23 07/12/2023 IRON AND TIBC iron 118 ug/dL 27-159 Not Available [facility] ([facility]) [address] [place], [address], 07/12/2023 08:28:06 07/11/20 23 07/12/2023 IRON AND TIBC iron saturation 30 % 15-55 Not Available [facility] ([facility]) [address] [facility], [place], [address], 07/12/2023 08:28:06 07/11/2007/12/2023 VITAM IN B12 AND FOLAT E vitamin B12 233 pg/mL 232-12 45 Not Available [facility] ([facility]) [address] [facility], [place], [address], 07/12/2023 08:28:06 07/11/2007/12/2023 VITAM IN B12 AND FOLAT E folate (folic acid), serum 7.9 NG/mL >3.0 A serum folat e edison ntrat ion of less than 3.1 ng/mL is consi dered to repre sent clini petra defic iency . Not Available [facility] ([facility]) [address] [facility], [place], [address], 07/12/2023 08:28:06 07/11/2007/12/2023 HEMOG LOBIN A1C hemoglobin A1C 6.0 % 4.8-5. 6 above high normal Predi abete s: 5.7 - 6.4 Diabe venita: >6.4 Glyce sally contr ol for adult s with diabe venita: <7.0 Not Available [facility] ([facility]) [address] [place], [address], 07/12/2023 08:28:07 07/11/20 23 07/12/2023 VITAM IN D, 25-HY DROXY vitamin D, 25-hydroxy 36.3 NG/mL 30.0-1 00.0 Vitam in D defic iency has been defin ed by the Insti tute of Medic ine and an Endoc rine Socie ty pract ice guide line as a level of serum 25-OH vitam in D less than 20 ng/mL (1,2) . The Endoc rine Socie ty went on to fur er defin e vitam in D insuf ficie ncy as a level betwe en 21 and 29 ng/mL (2). 1. IOM (Inst itute of Medic ine). 2010. Dieta ry refer ence intak es for calci um and D. Casey jacobo [place]: [facility] Press . 2. Mark bear MF, Deb rodriguez [place], Gerard off-F amanda i RABAGO, et al. Evalu ation , treat ment, and preve ntion of vitam in D defic iency : an Endoc rine Socie ty clini petra pract ice guide line. JCEM. 2010; 96(7) :1911 -30. Not Available [facility] ([facility]) [address] [facility], [place], [address], 07/12/2023 08:28:08 07/11/20 23 07/13/2023 URINE CULTU RE, ETHELI NE urine culture, routine Final report Not Available [facility] ([facility]) [address] [place], [address], 07/13/2023 04:10:21 07/11/20 23 07/13/2023 URINE CULTU RE, ROUTI NE result 1 No growth Not Available [facility] ([facility]) [address] [facility], [place], [address], 07/13/2023 04:10:21 07/11/20 23 07/11/2023 urina lysis , dipst ick Leukocytes Trace Not Available [facility] [address] , [place], [address], 07/11/2023 09:37:15 07/11/20 23 07/11/2023 urina lysis , dipst ick Nitrite negati ve Not Available [address] , [place], [address], 07/11/2023 09:37:15 07/11/20 23 07/11/2023 urina lysis , dipst ick Urobilinogen .2 Not Available [address] , [place], [address], 07/11/2023 09:37:15 07/11/20 23 07/11/2023 urina lysis , dipst ick Protein Negati ve Not Available [address] , [place], [address], 07/11/2023 09:37:15 07/11/20 23 07/11/2023 urina lysis , dipst ick pH 5.5 Not Available [address] , [place], [address], 07/11/2023 09:37:15 07/11/20 23 07/11/2023 urina lysis , dipst ick Blood Modera te Not Available [address] , [place], [address], 07/11/2023 09:37:15 07/11/20 23 07/11/2023 urina lysis , dipst ick Specific [place] 1.030 Not Available [address] , [place], [address], 07/11/2023 09:37:15 07/11/20 23 07/11/2023 urina lysis , dipst ick Ketone Trace Not Available [address] [place], [address], 07/11/2023 09:37:15 07/11/20 23 07/11/2023 urina lysis , dipst ick Bilirubin Small Not Available [address] , [place], [address], 07/11/2023 09:37:15 07/11/20 23 07/11/2023 urina lysis , dipst ick Glucose Negati ve Not Available [address] , [place], [address], 07/11/2023 09:37:15 07/11/20 23 07/11/2023 urina lysis , dipst ick Appearance Cloudy Not Available [address] , [place], [address], 07/11/2023 09:37:15 07/11/20 23 07/11/2023 urina lysis , dipst ick Color Dark Yellow Not Available [address] , [place], [address], 07/11/2023 09:37:15 07/12/2007/20/2023 COMPL IANCE DRUG NATALI SIS, UR summary report (summary) FINAL ===== ===== ===== ===== ===== ===== ===== ===== ===== ===== ===== ===== ===== === TOXAS SURE COMP DRUG NATALI SIS,U R ===== ===== ===== ===== ===== ===== ===== ===== ===== ===== ===== ===== ===== === Test Resul t Flag Units Drug Prese nt Alpra zolam 188 ng/mg creat Alpha -hydr oxyal prazo garcia 823 ng/mg creat Sourc e of alpra zolam is a sched uled presc ripti on medic ation . Alpha -hydr oxyal prazo garcia is an expec mukesh metab olite of alpra zolam . Bayard codon e >5263 ng/mg creat Bayard morph one 651 ng/mg creat Dihyd rocod eine 1085 ng/mg creat Norhy droco done >2632 ng/mg creat Sourc es of hydro codon e inclu de sched uled presc ripti on medic ation s. Bayard morph one, dihyd rocod eine and norhy droco done are expec mukesh metab olite s of hydro codon e. Bayard morph one and dihyd rocod eine are also avail able as sched uled presc ripti on medic ation s. Fenta nyl 1 ng/mg creat Sourc es of fenta nyl inclu de sched uled presc ripti on medic ation s, inclu ding IV, patch , and trans mucos al formu latio ns. Cyclo benza chelsie PRESE NT Desme thylc yclob enzap rine PRESE NT Desme thylc yclob enzap rine is an expec mukesh metab olite of cyclo benza chelsie . Aceta minop hen PRESE NT Ibupr ofen PRESE NT Diphe nhydr amine PRESE NT ===== ===== ===== ===== ===== ===== ===== ===== ===== ===== ===== ===== ===== === Test Resul t Flag Units Ref Range Creat inine 190 mg/dL >=20 ===== ===== ===== ===== ===== ===== ===== ===== ===== ===== ===== ===== ===== === Decla red Medic ation s: Medic ation list was not provi ded. ===== ===== ===== ===== ===== ===== ===== ===== ===== ===== ===== ===== ===== === For clini petra consu ltati on, pleas e call [phone]. ===== ===== ===== ===== ===== ===== ===== ===== ===== ===== ===== ===== ===== === Not Available [facility] ([facility]) [address] [facility], [place], [address], 2023 17:08:50 07/12/20 23 2023 COMPL IANCE DRUG NATALI SIS, UR pdf . Not Available [facility] ([facility]) [address] [facility], [place], [address], 2023 17:08:50 Result Notes None recorded. Problems Name Problem SNOMED Code Status Onset Date Resolution Date Notes Provider Name and Address Organization Details Recorded Time Scoliosis deformity of spine 972377527 Active 2022 Cande sloan, [place] - [facility] 3 09:05:59 Arthritis 0976152 Active 2022 Cande sloan [place] - [facility] 3 09:06:07 Chronic low back pain 392671644 Active 2022 April Olea, DO [address], [place], [address] , [place] - [facility] 3 10:01:11 Acute urinary tract infection 521177215 Active 2022 April Olea, DO [address], [place], [address] , [place] - [facility] 3 10:01:31 Candidiasis of vagina 17309489 Active 2022 April Olea, DO [address], [place], [address] , [place] - [facility] 3 10:01:41 Gastroesophag eal reflux disease 137351619 Active 2022 April Olea DO [address], [place], [address] , [place] - [facility] 3 10:05:08 Obesity 314333066 Active 2022 April Olea DO [address], [place], [address] , [place] - [facility] 3 10:06:06 Malaise and fatigue 895121990 Active 2022 April Olea, DO [address], [place], [address] , [place] - [facility] 3 10:07:31 Problem Notes None recorded. Procedures Surgical History Date Name Laterality Status Provider Name and Address Organization Details Recorded Time [facility] 09:07:43 Carpal tunnel surgery completed [facility] - [facility] 07/11/2023 09:07:57 Tubal Ligation completed [facility] - [facility] 07/11/2023 09:08:02 cholecystectomy completed [facility] - [facility] 07/11/2023 09:08:19 Imaging Results None recorded. Procedure Notes None recorded. Medical Equipment None Reported. Allergies No known drug allergies Medications Name Sig Start Date Stop Date Status Note LastModified by Organization Details LastModified Time cyclobenz aprine 10 mg tablet Take 1 tablet every day by oral route in the evening for 90 days. active Not Available Not Available No t Available amoxicill in 500 mg capsule take 1 capsule (500 mg) by oral route every 8 hours for 10 days 02/25 completed amoxicil supriya 500 mg oral capsule; Recorded Status: Recorded on: 05/22/20 09 9:52AM;D iscontin ued Status: Disconti nued on: 02/26/20 14 1:00PM;U ser: johnd;Es t. Completi on: 06/01/20 09;Indic ation: E. Coli Genitour inary Tract Infectio n - ([phone]);Prin mukesh: 05/22/20 09 Not Available Not Available Not Available fluconazo le 150 mg tablet TAKE ONE TABLET BY MOUTH IN A SINGLE DOSE active Not Available Not Available No t Available promethaz ine 12.5 mg tablet 07/11 completed Not Available Not Available Not Available Pyridium 100 mg tablet take 2 tablets (200 mg) by oral route 3 times per day after meals for 10 days 02/25 completed Pyridium 100 mg oral tablet;R ecorded Status: Recorded on: 05/22/20 09 9:52AM;D iscontin ued Status: Disconti nued on: 02/26/20 14 1:00PM;U ser: johnd;Es t. Completi on: 06/01/20;Indic ation: Urinary Tract Irritati on - ([phone] );Prin mukesh: 05/22/20 Not Available Not Available Not Available sulfameth oxazole 800 mg-trimet hoprim 160 mg tablet 07/11 completed Not Available Not Available Not Available hydrocodo ne 10 mg-acetam inophen 325 mg tablet TAKE 1 TABLET BY MOUTH THREE TIMES DAILY FOR BACK PAIN active Not Available Not Available No t Available alprazola m 0.5 mg tablet Take 1 tablet 3 times a day by oral route for 30 days. active Not Available Not Available No t Available alprazola m 0.25 mg tablet TAKE 1 TABLET BY MOUTH THREE TIMES DAILY NEEDED FOR ANXIETY 07/11 completed Not Available Not Available Not Available cephalexi n 500 mg capsule Take 1 capsule every 12 hours by oral route for 7 days. active Not Available Not Available No t Available pantopraz ole 40 mg tablet,de layed release 07/11 completed Not Available Not Available Not Available omeprazol e 20 mg capsule,d elayed release Take 1 capsule( s) every day by oral route for 90 days. active Not Available Not Available No t Available nitrofura ntoin monohydra te/macroc rystals 100 mg capsule 07/11 completed Not Available Not Available Not Available naloxone 4 mg/actuat ion nasal spray active Not Available Not Available Not Available Vitals Date Recorded Body weight Body mass index (BMI) Body height Body temperature Respiratory rate Heart rate Oxygen saturation Oxygen saturation in Arterial blood by Pulse oximetry Systolic blood pressure Diastolic blood pressure Provider Name and Address Organization Details Last Updated DateTime 3 89080.5 7 g 31.2 kg/m2 165.1 cm 98.7 [degF] 18 /min 75 /min 95 % 95 % 110 mm[Hg] 82 mm[Hg] Cande Shin [place] - [facility] 09:10:23 Social History Question Answer Notes LastModified by Organizat ion Details LastModified Time Tobacco Smoking Status Former Smoker Quit in 2005 Cande sloan [place] - [facility] 07/11/2023 09:06:55 Do You Have An Advance Directive? No [email or web address] Information not available 07/11/2023 Are You Blind Or Do You Have Difficulty Seeing? No [email or web address] Information not available 07/11/2023 What Is Your Level Of Caffeine Consumption? Heavy Tea Information not available 07/11/2023 In The 14 Days Before Symptom Onset, Have You Had Close Contact With A Laboratory-confir med COVID-19 While That Case Was Ill? No Information not available 07/11/2023 In The 14 Days Before Symptom Onset, Have You Had Close Contact With A Person Who Is Under Investigation For COVID-19 While That Person Was Ill? No [email or web address] Information not available 07/11/2023 Have You Been To An Area Known To Be High Risk For COVID-19? No Information not available 07/11/2023 Are You Deaf Or Do You Have Serious Difficulty Hearing? No Information not available 07/11/2023 What Type Of Diet Are You Following? REGULAR Information not available 07/11/2023 Have You Processed Blood Or Body Fluids From An Ebola Virus Disease Patient Without Appropriate PPE? No [email or web address] Information not available 07/11/2023 Do You Reside In Or Have You Traveled To An Area Where Ebola Virus Transmission Is Active? No [email or web address] Information not available 07/11/2023 What Is The Highest Grade Or Level Of School You Have Completed Or The Highest Degree You Have Received? [id number] [email or web address] Information not available 07/11/2023 Have There Been Any Changes To Your Family Or Social Situation? No [email or web address] Information no t available 07/11/2023 What Is The Fluoride Status Of Your Home? Unknown Information not available 07/11/2023 When Did You Quit Smoking? 16+yearssinc elastcigaret te [email or web address] Information not available 07/11/2023 Have You Recently Or Are You Planning To Travel To An Area With Zika Virus? No [email or web address] Information not available 07/11/2023 Do You Have A Medical Power Of Hopper Attendant? No [email or web address] Information not available 07/11/2023 What Was The Date Of Your Most Recent Tobacco Screening? 07/11/2023 Information not available 07/11/2023 How Many Children Do You Have? 4 [email or web address] Information not available 07/11/2023 What Is Your Relationship Status? [email or web address] Information not available 07/11/2023 Are You Sexually Active? No [email or web address] Information not available 07/11/2023 Do You Have Smoke And Carbon Monoxide Detectors In Your Home? Yes [email or web address] Information not available 07/11/2023 At What Age Did You Start Smoking Tobacco? 19 [email or web address] Information not available 07/11/2023 Are You Passively Exposed To Smoke? No [email or web address] Information no t available 07/11/2023 How Many Years Have You Smoked Tobacco? 11 [email or web address] Information not available 07/11/2023 Do You Have Difficulty Walking Or Climbing Stairs? No [email or web address] Information not available 07/11/2023 Sex: Female Functional Status Question Answer Note LastModified by Organizat ion Details LastModified Time Do you use any illicit or recreational drugs? No [email or web address] Information not available 07/11/2023 Do you or have you ever used any other forms of tobacco or nicotine? No [email or web address] Information not available 07/11/2023 What is your level of alcohol consumption? None [email or web address] Information not available 07/11/2023 Are you currently employed? No Disabled [email or web address] Information not available 07/11/2023 Do you have transportation difficulties? No [email or web address] Information not available 07/11/2023 Are you able to walk? YESWOREST [email or web address] Information not available 07/11/2023 Do you have difficulty doing errands alone? No [email or web address] Information not available 07/11/2023 Are you able to care for yourself? Yes [email or web address] Information n ot available 07/11/2023 Do you have difficulty dressing or bathing? No Information not available 07/11/2023 Mental Status Question Answer Note LastModified by Organization D etails LastModified Time Do you have difficulty concentrating, remembering or making decisions? No [email or web address] Information no t available 07/11/2023 Family History Relationship Description Onset Age of this Age Resolved Age Notes LastModified by Organization Details LastModified Time Mother Amyotrophic lateral sclerosis [email or web address] Not available 2022 09:08:34 Father Diabetes mellitus [email or web address] Not available 2022 09:08:41 Maternal Grandfather Heart disease [email or web address] Not available 2022 09:08:58 Maternal Grandmother Heart disease [email or web address] Not available 2022 09:08:58 Paternal Grandfather Malignant neoplasm of lung [email or web address] Not available 2022 09:09:10 Paternal Grandmother Malignant tumor of breast [email or web address] Not available 2022 09:09:19 Paternal Grandmother Heart disease Not available 2022 09:09:24 Medical History No medical history recorded. Gynecological HistoryNo gynecological history recorded. Obstetrics History GPAL:G 3 P 3 0 0 3 Type Value Full Term 3 Living 3 Total 3 Past Encounters Encounter ID Performer Location Encounter Start Date Encounter Closed Date Diagnosis/Indication Diagnosis SNOMED-CT Code Diagnosis ICD10 Code Diagnosis Note [id number] [facility] [address] [place] [address] 05/22/2009 00:00:00 [id number] [facility] [address] [place] [id number] 02/25/2014 00:00:00 [id number] [facility] [address] [place] [address] 05/17/2014 00:00:00 [id number] [facility] [address] [place] [address] 05/22/2009 00:00:00 [id number] April Olea, DO [address] [place] [address] 07/11/2023 08:42:42 07/11/2023 10:24:13 Increased frequency of urination 798232808 R35.0 Chronic low back pain 27 3849256 M54.50 I fully explained the combinatio n of hydrocodon e, alprazolam , and clobenzapr ine is not a safe combinatio n. I agreed to only prescribe one. She does not need refills today. Will send UDS. She agreed to do a referral for pain management . Acute urin yessica tract infection 274025038 N39.0 Candidiasis of vagina 72 035730 B37.31 Gastroesop hageal reflux disease 360292627 K21.9 Body mass index 30+ - obesity 764606095 Z68.31 Obesity 997287879 E66.9 Malaise and fatigue 2717 27304 R53.81 Screening for malignant neoplasm of colon 583896357 Z12.11 Screening for malignant neoplasm of breast 481398024 Z12.39 Declined today. Screening for malignant neoplasm of cervix 444191277 Z12.4 Declined today. Health Concerns Section Related Observation LastModified by Organization Detai ls LastModified Time None Recorded Concern Status LastModified by Organization Details LastModified Time None Recorded Advance Directives Directive N: Payers Insurance Date Sequence Insurance Name Policy Number Policy Tena Covered Member ID Tena Member ID Guarantor Name 07/21/2023 1 [employer] (MEDICARE REPLACEMENT/A DVANTAGE - PPO) Thania Barnese [id number] Thania Montelongo 07/21/2023 2 [place] Thania Rodriguez Reginald [id number] Thania Montelongo 07/21/2023 1 [employer] - CHOICECARE (PPO) Thania Montelongo [id number] Thania Montelongo Notes Date Note Type Note Provider Name and Address Organization Details Recorded Time 07/11/2023 text/html 57yoF Patient presents today to establish care. She states she has scolosis and is on Hydrocodone 10 mg TID. She is also on alprazolam 0.5mg TID for anxiety and cyclobenzaprine for pain. She is needing this prescribed. She was started on this regimen 2 years ago when nothing else worked for anxiety and pain. She also c/o lower back pain and urinary frequency. She was recently treated for a UTI but states the symptoms are not gone. She was seeing another PCP for her alprazolam, hydrocodone, and cyclobenzaprine prescriptions. They want her to see someone for pain management. She does have a hx of gastric bypass surgery in 2005. Her previous weight was 310 pounds. April Olea, DO [address], [place], [address], [place] - [facility] 07/11/2023 13:13:37 OBGyn Episode No OBEpisode recorded.
--- OUTSIDE RECORDS SUMMARY | 2025-01-15 15:21 | XMS_ITS | Clinical Summary ---
Author Organization [facility] Address [address] [place] [phone] Phone Care Team Providers Care Buffing Wheel Former Automatic Name Role Phone Unavailable Primary Care Provider Unavailabl e Social History Tobacco Use Types Packs/Day Years Used Date Smoking Tobacco: Never Assessed Comments Unknown Sex and Gender Information Value Date Recorded Sex Assigned at Not on file Legal Sex Female 10:52 AM EDT Gender Identity Not on file Sexual Orientation Not on file Plan of Treatment Health Maintenance Due Date Last Done Comments Annual Wellness Exam 1970 DTaP/TDaP/Td (1 - Tdap) 1986 Hepatitis B Vaccine (1 of 3 - 19+ 3-dose series) 1986 Cologuard 2012 Colon Cancer Screening 2012 Colonoscopy 2012 FIT 2012 Sigmoidoscopy 2012 Virtual Colonography 2012 Pneumococcal Vaccine 50+ (1 of 1 - PCV) 2017 Zoster (1 of 2) 2017 COVID-19 Vaccine (2023-2 5 season) 2024 Influenza Vaccine (Season Ended) 2025 Meningococcal B Vaccine Aged Out No l onger eligible based on patient's age to complete this topic
--- OUTSIDE RECORDS SUMMARY | 2025-01-15 15:21 | XMS_ITS | Data Portability ---
Author Organization [place] - [facility] Address [address] [place] [address] Care Team Providers Care Human Resources Operations Director Name Role Phone JOJOVAL Burton Primary Care Provider Assessment Encounter Date Assessment Date Assessment LastModified by Organization Details LastModified Time 10/22/2024 10/22/2024 Patient presente d for medication refill. Patient tolerating medication well at current dose without adverse effects. Refilled as below. Discussed plan with patient, who expressed understanding. Follow up as noted below. Narcan is prescribed due to either long-term use of opioid medication, MME > 50mg, use of benzodiazepines with opioids and medical comorbidities. Instructions were given to patient on use. [email or web address] Not available 10/22/2024 08:44:26 12/24/2024 12/24/2024 Patient presente d for medication refill. Patient tolerating medication well at current dose without adverse effects. Refilled as below. Discussed plan with patient, who expressed understanding. Follow up as noted below. Narcan is prescribed due to either long-term use of opioid medication, MME > 50mg, use of benzodiazepines with opioids and medical comorbidities. Instructions were given to patient on use. Not available 12/21/2024 11:47:56 Plan of Treatment [...] mg-acetam inophen 325 mg tablet 2024 025 [facility] [place], [address], 12/24/2024 13:42:48 cyclobenz aprine 10 mg tablet 2024 025 [facility] [address] [place], [address], 12/24/2024 13:42:46 meloxicam 15 mg tablet 2024 025 [facility] [address] [place], [address], 12/24/2024 13:42:44 omeprazol e 40 mg capsule,d elayed release 2024 025 [facility] [address], [address] [place] [address], [address], 12/24/2024 13:42:45 hydrocodo ne 10 mg-acetam inophen 325 mg tablet 2024 025 [facility] [address] [place], [address], 10/22/2024 08:51:00 Patient TargetsNo targets recorded. Patient InstructionsNo instructions [...] Details Last Updated DateTime 5 167.64 cm 98.1 [degF] 97 % 97 % 78 /min 16 /min 115 mm[Hg] 78 mm[Hg] [facility] Sh[facility] [place] 5 08:30:50 Date Recorded Body height Body temperature Oxygen saturation Oxygen saturation in Arterial blood by Pulse oximetry Heart rate Respiratory rate Systolic blood pressure Diastolic blood pressure Provider Name and Address Organization Details Last Updated DateTime 5 167.64 cm 97.2 [degF] 100 % 100 % 84 /min 16 /min 120 mm[Hg] 62 mm[Hg] Jannette Lubin [place] [facility] & [place] 5 08:16:52 Social History None recorded. Functional Status None recorded. Mental Status None recorded. Family History Nothing Reported. Medical History No medical history recorded. Gynecological HistoryNo gynecological history recorded. Obstetrics History GPAL:G 0 P 0 0 0 0 Past Encounters Encounter ID Performer Location Encounter Start Date Encounter Closed Date Diagnosis/Indication Diagnosis SNOMED-CT Code Diagnosis ICD10 Code Diagnosis Note [id number] [facility] [address] [place] [address] 10/22/2024 08:21:50 10/22/2024 08:53:10 Lumbar spondylosis 876084070 M47.816 Lumbar radiculopathy 128 249244 M54.16 Long-term current use of insulin 530661429 Z79.4 Cervical spondylosis 387 003230 M47.812 Degenerati on of lumbar intervertebral disc 38904171 M51.360 Long-term current use of opiate analgesic drug 0405828130 11447 Z79.891 Primary go narthrosis, bilateral 759463129 M17.0 [id number] [facility] [address] [place] [address] 12/24/2024 07:57:44 12/24/2024 08:39:52 Lumbar spondylosis 676323024 M47.816 Lumbar radiculopathy 128 434640 M54.16 Long-term current use of insulin 313618775 Z79.4 Cervical spondylosis 387 487501 M47.812 Degenerati on of lumbar intervertebral disc 39213340 M51.360 Long-term current use of opiate analgesic drug 4337076023 71839 Z79.891 Primary go narthrosis, bilateral 993765136 M17.0 Gastroesop hageal reflux disease without esophagitis 309721145 K21.9 Pt unable to get in to PCP to get GERD meds and is out at this time, she has an appt. Rx sent for one month until PCP can fill. Health Concerns Section Related Observation LastModified by Organization Detai ls LastModified Time None Recorded Concern Status LastModified by Organization Details LastModified Time None Recorded Advance Directives Directive None Recorded Payers Insurance Date Sequence Insurance Name Policy Number Policy Tena Covered Member ID Tena Member ID Guarantor Name 10/19/2024 1 [place] [id number] Thania I Reginald [id number] Thania Reginald 12/21/2024 2 [place] Thania I Reginald [id number] Thania Reginald 01/07/2025 1 [employer] (MEDICARE REPLACEMENT/A DVANTAGE - PPO) [id number] Thania I Reginald [id number] Thania Reginald 01/07/2025 [place]) Thania I Reginald [id number] Thania Reginald 07/25/2024 1 [place] Thania Reginald [id number] Thania Reginald 07/25/2024 1 [employer] (MEDICAID REPLACEMENT - HMO) [id number] Thania I Reginald [id number] Thania Reginald 10/22/2024 [employer] Nelson Jassi Thania Reginald 10/19/2024 1 [employer] (MEDICARE REPLACEMENT/A DVANTAGE - PPO) Thania Reginald [id number] Thania Reginald Notes Date Note Type Note Provider Name and Address Organization Details Recorded Time 10/22/2024 text/html Onset: > 8 years Pain Location: b/lshoulder(s) arm(s) hand(s) wrist(s) UE's back, wrists, knees, hands,b/lfeetCourse: constant over several yearsPain Quality: savage, achy, burning, deep, throbbing, tingling, stiffPain Intensity: 10 / 10 without treatment could go to a 3/10 with pain medsAggravating Factors: sitting still for long periods of time, as soon as they wake up from sleep, cold weather, long car rides, walking, movementAlleviating Factors: walking, some movement, heat, ice, NSAIDS, TENS unit, lidocaine patch, chiroprator, PT, home exercise routine, rest, nothingAssociated Symptoms: none, tingling referring to b/l UE LE shoulder trapezi us elbow finger(s) karena mb hip(s) buttock(s) l ateral thigh medial thigh anterior thigh posterior LE knee(s) feet foot g reat toe LE at times MIGEL DALE NP [address], [place], [address], [facility] & [place] 10/22/2024 08:51:02 12/24/2024 text/html 59 yo female in for [...] alcohol consumption: None MIGEL DALE NP [address], [place], [address], [facility] & [place] 12/24/2024 13:42:48 OBGyn Episode No OBEpisode recorded.
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
== END 2025-01-14 23:59 | disposition home or self-care (01) ==
LOC: LAB.DROPOF 01-15 15:15
PROVIDERS: PCP Nurse Practitioner; Visit Provider Nurse Practitioner
DX: N39.0 Urinary tract infection, site not specified (principal); E78.5 Hyperlipidemia, unspecified
CPT/HCPCS: 80061; 87086

== ENCOUNTER 2025-03-15 09:50 | Outpatient (CLI) | payer MEDICARE, SELFPAY ==
--- OUTSIDE RECORDS SUMMARY | 2025-03-18 10:01 | XMS_ITS | Clinical Summary ---
Author Organization [facility] Address [address] [place] [phone] Phone Care Team Providers Care Hide Paster Name Role Phone Unavailable Primary Care Provider [...] Vaccine (2023-2 5 season) 2024 Influenza Vaccine (#1) 2025 Meningococcal B Vaccine Aged Out No l onger eligible based on patient's age to complete this topic
== END 2025-03-15 23:59 | disposition home or self-care (01) ==
LOC: LAB.DROPOF 03-18 09:50
PROVIDERS: PCP Family Medicine; Visit Provider Family Medicine
DX: E11.9 Type 2 diabetes mellitus without complications (principal); R30.0 Dysuria
CPT/HCPCS: 82043; 82570; 87086

== ENCOUNTER 2025-04-25 08:42 | Outpatient (CLI) | payer MEDICARE, SELFPAY ==
[2025-04-25 16:01] LABS: Chloride 101 mmol/L (98-107); Potassium 4.1 mmoL/L (3.5-5.1); Sodium 135 mmol/L (136-145)
[2025-04-25 16:04] LABS: Anion Gap 9.1 mEq/L (5-15); Blood Urea Nitrogen 17 mg/dl (7-17); Carbon Dioxide 29 mmol/L (22.0-30.0); Creatinine,Serum 0.70 mg/dl (0.52-1.04); Estimated Glomerular Filt Rate 86 ml/min (>60); GFR (African American) 104 ML/MIN (>60)
[2025-04-25 16:05] LABS: Calcium 9.3 mg/dl (8.4-10.2); Glucose 91 mg/dl (74-100)
[2025-04-25 16:54] LABS: Hepatitis C Ab Qual. W/ RFX NEGATIVE (Negative)
[2025-04-26 04:08] LABS: Hepatitis B Surface Antigen Negative (Negative)
--- OUTSIDE RECORDS SUMMARY | 2025-04-26 13:16 | XMS_ITS | Clinical Summary ---
Author Organization [facility] Address [address] [place] [phone] Phone Care Team Providers Care Theoretical Physicist Name Role Phone Unavailable Primary Care Provider [...] Zoster (1 of 2) 2017 COVID-19 Vaccine ( - 2023-2 5 season) 2025 Influenza Vaccine (#1) 2025 Meningococcal B Vaccine Aged Out No l onger eligible based on patient's age to complete this topic
== END 2025-04-25 23:59 | disposition home or self-care (01) ==
LOC: LAB.DROPOF 04-26 13:14
PROVIDERS: PCP Family Medicine; Visit Provider Family Medicine
DX: N39.0 Urinary tract infection, site not specified (principal); E11.9 Type 2 diabetes mellitus without complications; R39.9 Unspecified symptoms and signs involving the genitourinary system; Z11.59 Encounter for screening for other viral diseases
CPT/HCPCS: 80048; 86803; 87086; 87340; 87389